=== PATIENT | female | born 1955 | race Caucasian/White ===

== ENCOUNTER 2016-06-07 14:46 | Emergency (ER) | payer OTHER, BC ==
[2016-06-07] MEDS ORDERED: OXYMETAZOLINE NASAL SPRAY NAS STA (16:20)
[2016-06-07] MEDS ORDERED: OXYMETAZOLINE NASAL SPRAY NAS ONE (16:20)
== END 2016-06-07 16:27 | disposition home or self-care (01) ==
DX: S02.2XXB Fracture of nasal bones, initial encounter for open fracture (principal); W18.09XA Striking against other object with subsequent fall, initial encounter
CPT/HCPCS: 70160; 99283; A9270

== ENCOUNTER 2019-01-31 09:48 | Outpatient (CLI) | payer OTHER ==
[2019-01-31 10:05] LABS: BASOPHILS % (AUTO) 0.7 %; EOSINOPHILS # (AUTO) 0.1 10^3/uL (0.0-0.7); EOSINOPHILS % (AUTO) 1.5 %; HGB - HEMOGLOBIN 13.9 g/dL (12.0-16.0); LYMPHOCYTES # (AUTO) 1.6 10^3/uL (1.5-3.5); LYMPHOCYTES % (AUTO) 27.3 %; MEAN CORPUSCULAR HEMOGLOBIN 29.8 pg (27.0-31.0); MEAN CORPUSCULAR HGB CONC 32.1 g/dL (32.0-36.0); MEAN CORPUSCULAR VOLUME 92.9 fL (81.0-99.0); MEAN PLATELET VOLUME 8.8 fL (7.9-10.8); MONOCYTES # (AUTO) 0.5 10^3/uL (0.0-1.0); MONOCYTES % (AUTO) 9.2 %; NEUTROPHILS # (AUTO) 3.6 10^3/uL (1.5-6.6); PLT - PLATELET COUNT 355 10^3/uL (130-450); RED BLOOD COUNT 4.66 10^6/uL (4.20-5.40); RED CELL DISTRIBUTION WIDTH 12.7 % (12.0-15.0); WHITE BLOOD COUNT 5.9 x10^3/uL (4.8-10.8)
[2019-01-31 11:09] LABS: D-DIMER 240.1 ng/mL (200.0-255.0)
== END 2019-01-31 09:49 | disposition home or self-care (01) ==
LOC: LAB 09:48
PROVIDERS: ATTEND Nurse Practitioner Family
DX: G43.909 Migraine, unspecified, not intractable, without status migrainosus (principal); Z82.3 Family history of stroke
CPT/HCPCS: 36415; 85025; 85379; 85384

== ENCOUNTER 2019-02-01 11:00 | Outpatient (CLI) | payer OTHER ==
--- NOTE | 2019-02-01 16:55 | DEXA Report ---
Reason: SCR FOR OSTEOPOROSIS Procedure Date: 02/01/2019 Accession Number: [id number] / [id number] Procedure: DEX - Dexa Spine and/or Hip CPT Code: Final Report FULL RESULT: EXAM: Dexa Spine and/or Hip DATE: 02/01/2019 11:35 AM CLINICAL HISTORY: Postmenopausal TECHNIQUE: Dual energy x-ray absorptiometry (DXA) was performed on a i[employer] System. Regions measured are the AP Spine, femoral neck, and if needed forearm. COMPARISON: None. In accordance with the International Society for Clinical Densitometry (ISCD) guidelines, data from previous exams may be reanalyzed using current recommendations and techniques. This is done to allow a more accurate basis for comparison with the current study. FINDINGS: The data for the lumbar spine is as follows: BMD (g/cm/cm) T-SCORE Z-SCORE REGION L1 0.918 -1.8 0.1 L2 0.900 -2.5 -0.7 L3 0.989 -1.8 0.1 L4 0.870 -2.8 -0.9 TOTAL 0.918 -2.2 -0.4 NOTE: All evaluable vertebrae are used for classification The data for the hip is as follows: BMD (g/cm/cm) T-SCORE Z-SCORE REGION Neck 0.743 -2.1 -0.5 TOTAL 0.790 -1.7 -0.4 NOTE: The femoral neck or total proximal femur, whichever is lowest, is used for classification. IMPRESSION: THE WHO CLASSIFICATION BASED ON THE INTERNATIONAL REFERENCE STANDARD OSTEOPENIA, REFERENCE LUMBAR SPINE. THE FRACTURE RISK IS INCREASED. RECOMMENDATION: Patients with diagnosis of osteoporosis or osteopenia should have regular bone mineral density assessment. For those eligible for Medicare, routine testing is allowed once every 2 years. Testing frequency can be increased for patients who have rapidly progressing disease or for those who are receiving medical therapy to restore bone mass. COMMENT: World Health Organization (WHO) definitions for osteoporosis and osteopenia: NORMAL BMD: T-score at -1.0 or higher, fracture risk is low OSTEOPENIA BMD: T-score between -1.0 and -2.5, fracture risk is increased. OSTEOPOROSIS BMD: T-score at -2.5 or lower, fracture risk is high. National Osteoporosis Foundation recommends: 1. Obtain adequate dietary calcium (at least 1200 mg per day) and vitamin D (400-800 international units per day). 2. Participate, as appropriate, in regular weightbearing and muscle-strengthening exercise. 3. Avoid tobacco use and reduce alcohol and caffeine intake. 4. For more detailed information see the website at www.NOF.org.
== END 2019-02-01 11:01 | disposition home or self-care (01) ==
LOC: DI 11:00
PROVIDERS: ATTEND Nurse Practitioner Family
DX: Z13.820 Encounter for screening for osteoporosis (principal); M85.89 Other specified disorders of bone density and structure, multiple sites
CPT/HCPCS: 77080

== ENCOUNTER 2020-06-29 14:35 | Outpatient (CLI) | payer OTHER, MEDICARE ==
--- NOTE | 2020-06-29 15:32 | CT Report ---
PROCEDURE: CERVICAL SPINE WO INDICATIONS: CERVICALGIA TECHNIQUE: Noncontrast 3 mm thick sections acquired from the skull base to the T4 level. Sagittal and coronal r eformats were then constructed. For radiation dose reduction, the following was used: automated exp osure control, adjustment of mA and/or kV according to patient size. COMPARISON: Correlation is made with the accompanying head CT, 06/29/2020. FINDINGS: Image quality: Excellent. Bones: No fractures or dislocations. Visualized superior ribs are intact. There is moderate to severe disc space narrowing at C5-C6 and C6-C7. Associated endplate irregularity and sclerosis can be seen. Posteriorly directed endplate osteophytes can be seen at this level. Foca l degenerative change can also be seen involving the C1-C2 interface anteriorly. There is partial fus ion of facet joints seen within the mid cervical spine. Milder degenerative changes are seen elsewher e. Soft tissues: Prevertebral soft tissues are normal in thickness. No paravertebral hematomas. No ap ical pneumothoraces. Tonsilloliths are incidentally noted. IMPRESSION: No acute abnormality is detected. Cervical spine degenerative changes are seen, which are worst inferiorly. Reviewed by: Shay Allen MD on 06/29/2020 2:31 PM [facility] Approved by: Shay Allen MD on 06/29/2020 2:31 PM [facility] Station ID: [id number]
--- NOTE | 2020-06-29 15:33 | CT Report ---
PROCEDURE: HEAD WO INDICATIONS: HEADACHE TECHNIQUE: Noncontrast 4.5 mm thick angled axial sections acquired from the foramen magnum to the vertex. For r adiation dose reduction, the following was used: automated exposure control, adjustment of mA and/or kV according to patient size. COMPARISON: Correlation is made with the accompanying cervical spine CT, 06/29/2020. FINDINGS: Image quality: Excellent. CSF spaces: Basal cisterns are patent. No extra-axial fluid collections. Ventricles are normal in size and shape. Brain: No midline shift. No intracranial masses or hemorrhage. Aleman-white matter interface is norm al. Mild brain parenchymal volume loss and chronic small vessel ischemic change can be seen. Skull and face: Calvarium and visualized facial bones are intact, without suspicious lesions. Sinuses: Visualized sinuses and mastoids are clear. IMPRESSION: Noncontrast head CT within normal limits for age, without an acute abnormality seen. No intracranial hemorrhage is seen. No cause of headache and be seen on these images. Reviewed by: Shay Allen MD on 06/29/2020 2:32 PM [facility] Approved by: Shay Allen MD on 06/29/2020 2:32 PM [facility] Station ID: [id number]
== END 2020-06-29 14:36 | disposition home or self-care (01) ==
LOC: DI 14:35
PROVIDERS: ATTEND Internal Medicine
DX: R51.9 Headache, unspecified (principal); M50.322 Other cervical disc degeneration at C5-C6 level

== ENCOUNTER 2020-07-14 15:03 | Outpatient (CLI) | payer OTHER, MEDICARE ==
--- NOTE | 2020-07-14 18:51 | Ultrasound Report ---
PROCEDURE: Head or Neck Soft Tissue INDICATIONS: SWELLING BASE OF RIGHT NECK TECHNIQUE: Real time scanning was performed of the neck region of interest, with image documentation . COMPARISON: None. FINDINGS: No soft tissue neck abnormality seen bilaterally. IMPRESSION: No soft tissue mass or fluid collection is seen in bilateral lower neck soft tissue. No abnormally en larged lymph nodes are seen. Reviewed by: Jacques Santos MD on 07/14/2020 5:50 PM [facility] Approved by: Jacques Sanots MD on 07/14/2020 5:50 PM AKDT Station ID: [id number]
== END 2020-07-14 15:04 | disposition home or self-care (01) ==
LOC: DI 15:03
PROVIDERS: ATTEND Internal Medicine
DX: R22.1 Localized swelling, mass and lump, neck (principal)

== ENCOUNTER 2021-07-13 08:00 | Outpatient (CLI) | payer MEDICARE, OTHER ==
[2021-07-13 16:40] LABS: BASOPHILS # (AUTO) 0.1 10^3/uL (0.0-0.1); BASOPHILS % (AUTO) 0.8 %; EOSINOPHILS # (AUTO) 0.1 10^3/uL (0.0-0.7); EOSINOPHILS % (AUTO) 1.1 %; HCT - HEMATOCRIT 39.7 % (37.0-47.0); LYMPHOCYTES # (AUTO) 1.8 10^3/uL (1.5-3.5); LYMPHOCYTES % (AUTO) 27.1 %; MEAN CORPUSCULAR HEMOGLOBIN 29.1 pg (27.0-31.0); MEAN CORPUSCULAR HGB CONC 32.7 g/dL (32.0-36.0); MEAN PLATELET VOLUME 9.9 fL (7.9-10.8); MONOCYTES # (AUTO) 0.5 10^3/uL (0.0-1.0); NEUTROPHILS # (AUTO) 4.2 10^3/uL (1.5-6.6); NEUTROPHILS % (AUTO) 62.8 %; PLT - PLATELET COUNT 370 10^3/uL (130-450); RED BLOOD COUNT 4.46 10^6/uL (4.20-5.40); RED CELL DISTRIBUTION WIDTH 12.6 % (12.0-15.0); WHITE BLOOD COUNT 6.6 x10^3/uL (4.8-10.8)
[2021-07-13 16:53] LABS: ALBUMIN/GLOBULIN RATIO 1.4 (1.0-2.2); BILIRUBIN,TOTAL 0.7 mg/dL (0.2-1.0); CALCIUM 9.4 mg/dL (8.5-10.3); CREATININE 0.6 mg/dL (0.4-1.0); POTASSIUM 3.9 mmol/L (3.5-5.0); TOTAL PROTEIN 6.9 g/dL (6.7-8.2)
[2021-07-13 17:03] LABS: THYROID STIMULATING HORMONE 1.42 uIU/mL (0.34-5.60)
[2021-07-14 09:03] LABS: HEPATITIS C ANTIBODY NON-REACTIVE (NON-REACTIVE)
[2021-07-14 15:28] LABS: CHOL/HDL RATIO 3.6 (<4.4); CHOLESTEROL 242 mg/dL; HDL CHOLESTEROL 68 mg/dL; LDL CHOLESTEROL,CALCULATED 163 mg/dL; LDL/HDL RATIO 2.4 (<4.4); TRIGLYCERIDES 53 mg/dL; VLDL CHOLESTEROL 11 mg/dL
== END 2021-07-13 08:01 | disposition home or self-care (01) ==
LOC: LAB.R 08:00
PROVIDERS: ATTEND Internal Medicine
DX: R26.81 Unsteadiness on feet (principal); R03.0 Elevated blood-pressure reading, without diagnosis of hypertension; R51.9 Headache, unspecified; R41.3 Other amnesia; M54.50 Low back pain, unspecified; F07.81 Postconcussional syndrome; Z13.6 Encounter for screening for cardiovascular disorders; Z11.59 Encounter for screening for other viral diseases; Z79.899 Other long term (current) drug therapy
CPT/HCPCS: 80053; 80061; 82306; 82607; 83721; 84443; 85025; 86803

== ENCOUNTER 2023-03-23 14:58 | Outpatient (CLI) | payer MEDICARE, OTHER ==
--- NOTE | 2023-03-23 18:06 | XRAY Report ---
PROCEDURE: Foot 3 View LT INDICATIONS: FOOT PAIN TECHNIQUE: 3 views of the foot were acquired. COMPARISON: None. FINDINGS: Bones: Acute, minimally displaced fracture at the base of the fifth proximal phalanx with intra-dorothy cular extension. Mild first MTP joint space narrowing. No suspicious bony lesions. Soft tissues: No suspicious soft tissue calcifications or masses. Soft tissue swelling about the fif th toe. No radiopaque foreign body. IMPRESSION: Acute, minimally displaced fracture at the base of the fifth proximal phalanx with intra-articular ex tension. Reviewed by: Nicole Ferreira MD on 03/23/2023 6:05 PM PST Approved by: Nicole Ferreira MD on 03/23/2023 6:05 PM PST Station ID: [id number]
== END 2023-03-23 14:59 | disposition home or self-care (01) ==
LOC: DI 14:58
PROVIDERS: ATTEND Internal Medicine
DX: S92.512A Displaced fracture of proximal phalanx of left lesser toe(s), initial encounter for closed fracture (principal)